=== PATIENT | female | born 1960 | race American Indian/Alaskan Native ===

== ENCOUNTER 2020-08-14 09:24 | Emergency (ER) | payer BC ==
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
[2020-08-14] MEDS ORDERED: FLUORESCEIN 1 MG STRIP OP ONE (10:13)
[2020-08-14] MEDS ORDERED: HYDROmorphone 1 MG/1 ML INJ IV ONE ×3 (10:13→12:27)
[2020-08-14] MEDS ORDERED: TETRACAINE 0.5% OPHTH SOLN 4ML OD STA (10:13)
[2020-08-14 11:08] LABS: Hematocrit 34.3 % (30.3-42.9); Hemoglobin 10.9 gm/dl (10.1-14.3); Mean Corpuscular HGB Conc 32 % (30-34); Mean Corpuscular Volume 72 fl (79-97); Platelet Count 168 K/mm3 (140-440); Red Blood Count 4.74 M/mm3 (3.65-5.03); Red Cell Distribution Width 16.8 % (13.2-15.2)
[2020-08-14 11:18] LABS: INR 1.05 (0.87-1.13)
[2020-08-14 11:19] LABS: Partial Thromboplastin Time 26.9 Sec. (24.2-36.6)
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
[2020-08-14 11:35] LABS: Alanine Aminotransferase 13 units/L (7-56); Albumin 4.1 g/dL (3.9-5); BUN/Creatinine Ratio 13; Blood Urea Nitrogen 14 mg/dL (7-17); Calcium 9.1 mg/dL (8.4-10.2); Hemolysis Index 26
[2020-08-14 11:47] VITALS: BP 125/72
[2020-08-14 13:45] LABS: Bilirubin,Urine NEG (Negative); Blood,Urine NEG (Negative); Color,Urine Yellow (Yellow); Mucus,Urine FEW /HPF; Urobilinogen,Urine < 2.0 mg/dL (<2.0)
== END 2020-08-14 15:35 | disposition home or self-care (01) ==
LOC: ED 09:24
DX: S09.90XA Unspecified injury of head, initial encounter (principal); S05.91XA Unspecified injury of right eye and orbit, initial encounter; R07.81 Pleurodynia; I10 Essential (primary) hypertension; Z79.2 Long term (current) use of antibiotics; Z79.899 Other long term (current) drug therapy; Y04.8XXA Assault by other bodily force, initial encounter; Y93.89 Activity, other specified; Y92.89 Other specified places as the place of occurrence of the external cause; Y99.8 Other external cause status
CPT/HCPCS: 36415; 70450; 70486; 71045; 80053; 81001; 82550; 83735; 84484; 85027; 85610; 85730; 93005; 96374; 96376; 99284; J1170